=== PATIENT | female | born 1990 | race Caucasian/White ===

== ENCOUNTER 2018-10-10 07:23 | Emergency (ER) | payer MEDICAID ==
[~2018-10-10] VITALS: Ht 160 cm; Wt 68.0 kg
[2018-10-10 07:28] VITALS: Ht 160 cm; Wt 68.0 kg
[2018-10-10 07:57] VITALS: BP 143/75
== END 2018-10-10 07:57 | disposition home or self-care (01) ==
LOC: ED 07:23
DX: K02.9 Dental caries, unspecified (principal); F17.200 Nicotine dependence, unspecified, uncomplicated
CPT/HCPCS: 99406